=== PATIENT | male | born 1995 | race Asian ===

== ENCOUNTER 2016-10-19 17:33 | Observation (INO) | payer OTHER ==
[~2016-10-19] VITALS: Ht 172.7 cm; Wt 72.0 kg
[2016-10-19] MEDS ORDERED: MoRPHine SULFATE 10 MG/ML CARP/VIAL IV STA (18:07)
[2016-10-19] MEDS ORDERED: SODIUM CHLORIDE 0.9% 1000ML 1,000 ML IV STA (18:07)
[2016-10-19] MEDS ORDERED: ONDANSETRON INJ 2 MG/ML 2 ML VIAL IV STA (18:07)
[2016-10-19 18:17] LABS: BASO % 0.1 %; BASO ABS # 0.02 K/uL (0-0.2); COMPLETE YES; EOS % 0.2 %; HEMATOCRIT 50.5 % (42-52); IG% 0.4 %; LYMPH % 7.3 %; LYMPH ABS # 1.03 K/uL (1.2-3.4); MEAN CELL VOLUME 92.8 fL (80-100); MEAN CORPUSCULAR HEMOGLOBIN 31.3 pg (25-34); MEAN CORPUSCULAR HGB CONC 33.7 g/dl (32-36); MONO % 4.7 %; NEUT % 87.3 %; PLATELET COUNT 255 K/uL (130-400); RED BLOOD COUNT 5.44 M/uL (4.7-6.1); WHITE BLOOD COUNT 14.02 K/uL (4.8-10.8)
[2016-10-19 18:39] LABS: BUN/CREATININE RATIO 15.6 (10-20); CALCIUM 9.2 mg/dl (8.5-10.1); CREATININE 1.3 mg/dl (0.60-1.40); POTASSIUM 3.9 mmol/L (3.5-5.1)
[2016-10-19] MEDS ORDERED: OPTIRAY 320 IV PRN (21:00)
[2016-10-19 21:08] LABS: URINE APPEARANCE CLEAR (CLEAR); URINE BILIRUBIN NEG (NEG); URINE COLOR YELLOW; URINE EPITHELIAL CELL AUTO 0-5 /lpf (0-5); URINE NITRITE NEG (NEG); URINE PH 8.5 (4.5-7.5); URINE SPECIFIC GRAVITY 1.014 (1.000-1.030); UROBILINOGEN NEG (NEG); ZZUR CULT IF INDIC CLEAN CATCH NO
--- NOTE | 2016-10-19 21:08 | DIAGNOSTIC IMAGING REPORT ---
ABDOMEN AND PELVIS CT WITH IV AND ORAL CONTRAST CT DOSE: 279.49 mGy.cm HISTORY: Right lower quadrant abdominal pain. TECHNIQUE: Multiaxial CT images of the abdomen and pelvis were performed following the use of intravenous and oral contrast. COMPARISON STUDY: None. FINDINGS: The lung bases are clear. The liver, spleen, gallbladder, pancreas, kidneys, and adrenal glands are within normal limits. No bowel obstruction. The pelvic organs are unremarkable. No suspicious lytic or blastic osseous lesions. Distended appendix measuring up to 11 mm. There is mild periappendiceal fat stranding and appendiceal wall thickening. There is a 3 mm appendicolith. Findings are consistent with acute appendicitis. No perforation or abscess. 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 IMPRESSION: Acute appendicitis. Electronically signed by: Jaylon Ovalle M.D. 10/19/2016 9:06 PM Dictated Date/Time: 10/19/2016 9:02 PM
[2016-10-19 21:09] LABS: MANUAL MICROSCOPIC REQUIRED? NO; REVIEW REQ? NO
[2016-10-19] MEDS ORDERED: CEFOXITIN SOD 2 GM VIAL IV STA (21:47)
--- NOTE | 2016-10-19 21:47 | History and Physical ---
History & Physical Date & Time of Service: Oct 19, 2016 at 21:41 Chief Complaint: R Flank Pain,Vomiting Primary Care Physician: No Doctor, Assigned History of Present Illness Source: patient The patient is a 20 year old male who presents to the Emergency Room with complaints of persistent right sided abdominal pain that began when he woke up this morning, several hours prior to arrival. The patient describes the pain as sharp and shooting from his right upper quadrant to his right lower quadrant. He did vomit today, but he states that it was forced. He denies any urinary irregularities. The patient notes that he has not been eating or drinking today. He denies headache, change in vision, fevers, chest pain, shortness of breath, diarrhea, and melena. I examed pt and reviewed all labs and CT scan, I agree with Dx acute appendicitis, Social History Smoking Status: Never Smoker Smokeless Tobacco Use: No Alcohol Use: none Drug Use: none Allergies Coded Allergies: No Known Allergies (Unverified , 10/19/16) Home Medications No Active Prescriptions or Reported Meds Review of Systems Constitutional: No chills, No fatigue, No fever, No problem reported, No sweats , No weakness, No weight loss Eyes: No diplopia, No discharge, No eye pain, No problem reported, No redness, No worsening of vision ENT: No dental problems, No hearing loss, No nasal symptoms, No problem reported, No sore throat, No tinnitus, No trouble swallowing, No unusual epistaxis Respiratory: No cough, No dyspnea at rest, No dyspnea on exertion, No hemoptysis, No problem reported, No shortness of breath, No sputum, No wheezing Cardiovascular: No PND, No chest pain, No claudication, No edema, No orthopnea , No palpitations, No problem reported Abdomen: + nausea, + pain, + vomiting Musculoskeletal: No calf pain, No joint pain, No muscle pain, No problem reported, No swelling Genitourinary - Male: No dysuria, No hematuria, No impotence, No lesions, No penile discharge, No problem reported, No urinary frequency, No urinary hesitancy, No urinary incontinence, No urinary retention, No urinary urgency Neurologic: No balance problems, No memory loss, No numbness/tingling, No paralysis, No problem reported, No vertigo, No weakness Psychiatric: No anhedonism, No anxiety, No depression symptoms, No insomnia, No problem reported, No substance abuse Endocrine: No excessive thirst, No excessive urination, No fatigue, No problem reported Hematologic / Lymphatic: No abnormal bleeding/bruising, No clotting problems, No night sweats, No problem reported, No swollen lymph nodes Physical Exam Vital Signs Date Time Temp Pulse Resp B/P Pulse Ox O2 Delivery O2 Flow Rate FiO2 10/19/16 21:11 37.0 80 16 135/71 98 Room Air 10/19/16 19:50 75 18 138/65 100 Room Air 10/19/16 17:37 36.3 72 20 118/56 100 General Appearance: WD/WN, + mild distress Head: normocephalic Eyes: normal inspection ENT: normal ENT inspection, hearing grossly normal Neck: supple, no adenopathy, no JVD Respiratory/Chest: chest non-tender, lungs clear, normal breath sounds Cardiovascular: regular rate, rhythm, no edema, no gallop, no JVD Abdomen/GI: soft, no organomegaly, + tenderness, + guarding Extremities/Musculoskelatal: normal inspection, no calf tenderness, normal capillary refill Neurologic/Psych: no motor/sensory deficits, normal mood/affect Skin: normal color, warm/dry, no rash Diagnostics Laboratory Results Results Past 24 Hours Test 10/19/16 18:00 10/19/16 20:30 Range/Units White Blood Count 14.02 4.8-10.8 K/uL Red Blood Count 5.44 4.7-6.1 M/uL Hemoglobin 17.0 14.0-18.0 g/dL Hematocrit 50.5 42-52 % Mean Corpuscular Volume 92.8 80-100 fL Mean Corpuscular Hemoglobin 31.3 25-34 pg Mean Corpuscular Hemoglobin Concent 33.7 32-36 g/dl Platelet Count 255 130-400 K/uL Mean Platelet Volume 10.0 7.4-10.4 fL Neutrophils (%) (Auto) 87.3 % Lymphocytes (%) (Auto) 7.3 % Monocytes (%) (Auto) 4.7 % Eosinophils (%) (Auto) 0.2 % Basophils (%) (Auto) 0.1 % Neutrophils # (Auto) 12.23 1.4-6.5 K/uL Lymphocytes # (Auto) 1.03 1.2-3.4 K/uL Monocytes # (Auto) 0.66 0.11-0.59 K/uL Eosinophils # (Auto) 0.03 0-0.5 K/uL Basophils # (Auto) 0.02 0-0.2 K/uL RDW Standard Deviation 41.4 36.4-46.3 fL RDW Coefficient of Variation 12.3 11.5-14.5 % Immature Granulocyte % (Auto) 0.4 % Immature Granulocyte # (Auto) 0.05 0.00-0.02 K/uL Sodium Level 140 136-145 mmol/L Potassium Level 3.9 3.5-5.1 mmol/L Chloride Level 101 98-107 mmol/L Carbon Dioxide Level 29 21-32 mmol/L Anion Gap 10.0 3-11 mmol/L Blood Urea Nitrogen 20 7-18 mg/dl Creatinine 1.30 0.60-1.40 mg/dl Est Creatinine Clear Calc Drug Dose 87.7 ml/min Estimated GFR () 91.0 Estimated GFR (Non- 78.5 BUN/Creatinine Ratio 15.6 10-20 Random Glucose 109 70-99 mg/dl Calcium Level 9.2 8.5-10.1 mg/dl Total Bilirubin 0.9 0.2-1 mg/dl Direct Bilirubin 0.2 0-0.2 mg/dl Aspartate Amino Transf (AST/SGOT) 13 15-37 U/L Alanine Aminotransferase (ALT/SGPT) 26 12-78 U/L Alkaline Phosphatase 91 45-117 U/L Total Protein 8.2 6.4-8.2 gm/dl Albumin 4.7 3.4-5.0 gm/dl Lipase 81 73-393 U/L Urine Color YELLOW Urine Appearance CLEAR CLEAR Urine pH 8.5 4.5-7.5 Urine Specific [place] 1.014 1.000-1.030 Urine Protein NEG NEG Urine Glucose (UA) NEG NEG Urine Ketones 1+ NEG Urine Occult Blood NEG NEG Urine Nitrite NEG NEG Urine Bilirubin NEG NEG Urine Urobilinogen NEG NEG Urine Leukocyte Esterase NEG NEG Urine WBC (Auto) 0 0-5 /hpf Urine RBC (Auto) 0-4 0-4 /hpf Urine Hyaline Casts (Auto) 1-5 0-5 /lpf Urine Epithelial Cells (Auto) 0-5 0-5 /lpf Urine Bacteria (Auto) NEG NEG Diagnostic Radiology ABDOMEN AND PELVIS CT WITH IV AND ORAL CONTRAST CT DOSE: 279.49 mGy.cm HISTORY: Right lower quadrant abdominal pain. TECHNIQUE: Multiaxial CT images of the abdomen and pelvis were performed following the use of intravenous and oral contrast. COMPARISON STUDY: None. FINDINGS: The lung bases are clear. The liver, spleen, gallbladder, pancreas, kidneys, and adrenal glands are within normal limits. No bowel obstruction. The pelvic organs are unremarkable. No suspicious lytic or blastic osseous lesions. Distended appendix measuring up to 11 mm. There is mild periappendiceal fat stranding and appendiceal wall thickening. There is a 3 mm appendicolith. Findings are consistent with acute appendicitis. No perforation or abscess. 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 IMPRESSION: Acute appendicitis. Impression Assessment and Plan IMP: acute appendicitis Plan: I recommend to do laparoscopic appendectomy, possible open , D/w benefits , risks and alternatives of the procedure, the risks- infection, bleeding, abscess, injury bowel, pt understood, he agrees with the plan, I answered all questions, pre-op antibiotic, ASA Classification: ASA Class I Level of Care Med/Surg VTE Prophylaxis VTE Risk Assessment Done? Y/N: Yes Risk Level: Very Low Given or contraindicated: SCD's
[2016-10-19] MEDS ORDERED: MoRPHine SULFATE 4 MG/ML 1 ML CARP\\VIAL IV STA (21:48)
[2016-10-19] MEDS ORDERED: BUPIVACAINE 0.5 % 5 MG/1 ML MPF 30ML VIAL ONE (21:51)
[2016-10-19] MEDS ORDERED: LIDOCAINE HCL 1% 20 ML VIAL ONE (21:51)
[2016-10-19] MEDS ORDERED: BACITRACIN OINT 15 GM TUBE ONE (21:52)
[2016-10-19] MEDS ORDERED: ACETAMINOPHEN 325 MG TAB PO PRN ×2 (22:00→23:45)
[2016-10-19] MEDS ORDERED: ONDANSETRON INJ 2 MG/ML 2 ML VIAL IV PRN ×3 (22:00→23:45)
[2016-10-19] MEDS ORDERED: HYDROmorphone INJ 1 MG/ML SYR IV PRN ×2 (22:00→22:45)
[2016-10-19] MEDS ORDERED: IV FLUIDS COMPLETED PRN (22:00)
[2016-10-19] MEDS ORDERED: MIDAZOLAM HCL 1 MG/ML 2ML VIAL ONE (22:29)
[2016-10-19] MEDS ORDERED: FENTANYL CITRATE INJ 50 MCG/1 ML 2 ML VIAL ONE (22:30)
[2016-10-19] MEDS ORDERED: ATROPINE SULFATE 0.1 MG/ML 5ML SYR IV PRN (22:45)
[2016-10-19] MEDS ORDERED: FENTANYL CITRATE INJ 50 MCG/1 ML 2 ML VIAL IV PRN (22:45)
[2016-10-19] MEDS ORDERED: MEPERIDINE HCL 25 MG/ML CARP IV PRN (22:45)
[2016-10-19] MEDS ORDERED: LABETALOL HCL IV 5 MG/ML 20ML IV PRN (22:45)
[2016-10-19] MEDS ORDERED: EpHEDrine SULFATE INJ 50 MG/ML AMP IV PRN (22:45)
[2016-10-19] MEDS ORDERED: PROPOFOL IV EMULSION 10 MG/ML 20 ML VIAL IV ONE (23:40)
--- NOTE | 2016-10-19 23:40 | [facility] Post Operative Brief Note ---
Immediate Operative Summary Operative Date Oct 19, 2016. Pre-Operative Diagnosis Acute appendicitis Post-Operative Diagnosis Same Procedure(s) Performed Laparoscopic Appendectomy Surgeon Dr Galindo Ship Officer Surgeon(s) director surgical Estimated Blood Loss 5ML Findings acute appendicitis Fluids (cc crystalloids) 800ml Specimens A. Appendix Drains none Complication(s) None Disposition Recovery Room / PACU
[2016-10-19] MEDS ORDERED: NEOSTIGMINE METHYLSULFATE 5 MG/5 ML SYR ONE (23:41)
[2016-10-19] MEDS ORDERED: GLYCOPYRROLATE INJ 0.2 MG/ML VIAL ONE (23:41)
[2016-10-19] MEDS ORDERED: LIDOCAINE HCL 2% 2 ML VIAL (20MG/ML) ONE (23:41)
[2016-10-19] MEDS ORDERED: ONDANSETRON INJ 2 MG/ML 2 ML VIAL ONE (23:41)
[2016-10-19] MEDS ORDERED: ROCURONIUM BROMID 50MG/5ML SYR ONE (23:41)
[2016-10-19] MEDS ORDERED: HYDROmorphone INJ 2 MG/ML SYR/VIAL IV PRN (23:45)
[2016-10-19] MEDS ORDERED: OXYCODONE/ACETAMINOPHEN 5-325 TAB PO PRN (23:45)
[2016-10-20] VITALS (8 sets, daily range): BP systolic 110–150; BP diastolic 62–85; PULSE 67–91; TEMP 36.5–36.8; O2SAT 95–98; Ht 172.7 cm; Wt 72.0 kg
--- NOTE | 2016-10-20 00:18 | EMERGENCY ROOM VISIT NOTE ---
History Report prepared by Stefanie: Jaden Vasquez Under the Supervision of: Dr. Dedrick Garcia D.O. First contact with patient: 17:50 Chief Complaint: ABDOMINAL PAIN Stated Complaint: R FLANK PAIN,VOMITING Nursing Triage Summary: eigastric pain to right side started today History of Present Illness The patient is a 20 year old male who presents to the Emergency Room with complaints of persistent right sided abdominal pain that began when he woke up this morning, several hours prior to arrival. The patient describes the pain as sharp and shooting from his right upper quadrant to his right lower quadrant. He did vomit today, but he states that it was forced. He denies any urinary irregularities. The patient notes that he has not been eating or drinking today. He denies headache, change in vision, fevers, chest pain, shortness of breath, diarrhea, and melena. Review of Systems See HPI for pertinent positives & negatives. A total of 10 systems reviewed and were otherwise negative. Past Medical & Surgical Medical Problems: (1) Acute appendicitis Family History No recorded family histories. Social History Smoking Status: Never Smoker Marital Status: single Housing Status: lives with roommate Occupation Status: [employer] student Current/Historical Medications No Active Prescriptions or Reported Meds Allergies Coded Allergies: No Known Allergies (Unverified , 10/19/16) Physical Exam Vital Signs Date Time Temp Pulse Resp B/P Pulse Ox O2 Delivery O2 Flow Rate FiO2 10/20/16 00:05 63 16 158/91 100 Mask 3 10/19/16 23:54 36.5 81 12 155/75 100 Mask 3 10/19/16 22:14 86 18 135/70 100 Room Air 10/19/16 21:11 37.0 80 16 135/71 98 Room Air 10/19/16 19:50 75 18 138/65 100 Room Air 10/19/16 17:37 36.3 72 20 118/56 100 Physical Exam GENERAL: alert, sitting up in bed, holding lower abdomen. Patient is in moderate distress. EYE EXAM: normal conjunctiva, PERRL and EOM's grossly intact OROPHARYNX: no exudate, no erythema, lips, buccal mucosa, and tongue normal and mucous membranes are moist NECK: supple, no nuchal rigidity, no adenopathy, non-tender LUNGS: Clear to auscultation. Normal chest wall mechanics HEART: no murmurs, S1 normal and S2 normal ABDOMEN: abdomen soft, with tenderness in the right lower quadrant. normo- active bowel sounds, no masses, no rebound or guarding. BACK: Back is symmetrical on inspection and there is no deformity, no midline tenderness, no CVA tenderness. SKIN: no rashes and no bruising UPPER EXTREMITIES: upper extremities are grossly normal. LOWER EXTREMITIES: No pitting edema. NEURO EXAM: Normal sensorium, cranial nerves II-XII grossly intact, normal speech, no gross weakness of arms, no gross weakness of legs. Medical Decision & Procedures ER Provider Diagnostic Interpretation: Radiology results as stated below per my review and the radiologist's interpretation: ABDOMEN AND PELVIS CT WITH IV AND ORAL CONTRAST CT DOSE: 279.49 mGy.cm HISTORY: Right lower quadrant abdominal pain. TECHNIQUE: Multiaxial CT images of the abdomen and pelvis were performed following the use of intravenous and oral contrast. COMPARISON STUDY: None. FINDINGS: The lung bases are clear. The liver, spleen, gallbladder, pancreas, kidneys, and adrenal glands are within normal limits. No bowel obstruction. The pelvic organs are unremarkable. No suspicious lytic or blastic osseous lesions. Distended appendix measuring up to 11 mm. There is mild periappendiceal fat stranding and appendiceal wall thickening. There is a 3 mm appendicolith. Findings are consistent with acute appendicitis. No perforation or abscess. 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 IMPRESSION: Acute appendicitis. Electronically signed by: Jaylon Ovalle M.D. 10/19/2016 9:06 PM Dictated Date/Time: 10/19/2016 9:02 PM Laboratory Results 10/19/16 18:00 Red Blood Count 5.44, Mean Corpuscular Volume 92.8, Mean Corpuscular Hemoglobin 31.3, Mean Corpuscular Hemoglobin Concent 33.7, Mean Platelet Volume 10.0, Neutrophils (%) (Auto) 87.3, Lymphocytes (%) (Auto) 7.3, Monocytes (%) (Auto) 4.7, Eosinophils (%) (Auto) 0.2, Basophils (%) (Auto) 0.1, Neutrophils # (Auto) 12.23, Lymphocytes # (Auto) 1.03, Monocytes # (Auto) 0.66, Eosinophils # (Auto) 0.03, Basophils # (Auto) 0.02 10/19/16 18:00 Test 10/19/16 18:00 10/19/16 20:30 White Blood Count 14.02 K/uL (4.8-10.8) Red Blood Count 5.44 M/uL (4.7-6.1) Hemoglobin 17.0 g/dL (14.0-18.0) Hematocrit 50.5 % (42-52) Mean Corpuscular Volume 92.8 fL (80-100) Mean Corpuscular Hemoglobin 31.3 pg (25-34) Mean Corpuscular Hemoglobin Concent 33.7 g/dl (32-36) Platelet Count 255 K/uL (130-400) Mean Platelet Volume 10.0 fL (7.4-10.4) Neutrophils (%) (Auto) 87.3 % Lymphocytes (%) (Auto) 7.3 % Monocytes (%) (Auto) 4.7 % Eosinophils (%) (Auto) 0.2 % Basophils (%) (Auto) 0.1 % Neutrophils # (Auto) 12.23 K/uL (1.4-6.5) Lymphocytes # (Auto) 1.03 K/uL (1.2-3.4) Monocytes # (Auto) 0.66 K/uL (0.11-0.59) Eosinophils # (Auto) 0.03 K/uL (0-0.5) Basophils # (Auto) 0.02 K/uL (0-0.2) RDW Standard Deviation 41.4 fL (36.4-46.3) RDW Coefficient of Variation 12.3 % (11.5-14.5) Immature Granulocyte % (Auto) 0.4 % Immature Granulocyte # (Auto) 0.05 K/uL (0.00-0.02) Anion Gap 10.0 mmol/L (3-11) Est Creatinine Clear Calc Drug Dose 87.7 ml/min Estimated GFR () 91.0 Estimated GFR (Non- 78.5 BUN/Creatinine Ratio 15.6 (10-20) Calcium Level 9.2 mg/dl (8.5-10.1) Total Bilirubin 0.9 mg/dl (0.2-1) Direct Bilirubin 0.2 mg/dl (0-0.2) Aspartate Amino Transf (AST/SGOT) 13 U/L (15-37) Alanine Aminotransferase (ALT/SGPT) 26 U/L (12-78) Alkaline Phosphatase 91 U/L (45-117) Total Protein 8.2 gm/dl (6.4-8.2) Albumin 4.7 gm/dl (3.4-5.0) Lipase 81 U/L (73-393) Urine Color YELLOW Urine Appearance CLEAR (CLEAR) Urine pH 8.5 (4.5-7.5) Urine Specific [place] 1.014 (1.000-1.030) Urine Protein NEG (NEG) Urine Glucose (UA) NEG (NEG) Urine Ketones 1+ (NEG) Urine Occult Blood NEG (NEG) Urine Nitrite NEG (NEG) Urine Bilirubin NEG (NEG) Urine Urobilinogen NEG (NEG) Urine Leukocyte Esterase NEG (NEG) Urine WBC (Auto) 0 /hpf (0-5) Urine RBC (Auto) 0-4 /hpf (0-4) Urine Hyaline Casts (Auto) 1-5 /lpf (0-5) Urine Epithelial Cells (Auto) 0-5 /lpf (0-5) Urine Bacteria (Auto) NEG (NEG) Laboratory results per my review. Medications Administered Medications (Trade) Dose Ordered Sig/Marcial Route Start Time Stop Time Status Last Admin Dose Admin Sodium Chloride (Nss 1000ml) 1,000 ml @ 999 mls/hr Q1H1M STAT IV 10/19/16 18:07 10/19/16 19:07 DC 10/19/16 18:28 999 MLS/HR Ondansetron HCl (Zofran Inj) 4 mg NOW STAT IV 10/19/16 18:07 10/19/16 18:09 DC 10/19/16 18:25 4 MG Morphine Sulfate (MoRPHine SULFATE INJ) 6 mg NOW STAT IV 10/19/16 18:07 10/19/16 18:09 DC 10/19/16 18:25 6 MG Lidocaine HCl (Xylocaine 1% Inj (Local)) 20 ml STK-MED ONCE .ROUTE 10/19/16 21:51 10/19/16 21:52 DC 10/19/16 23:15 6 ML Bupivacaine HCl (Marcaine 0.5% MPF Inj) 30 ml STK-MED ONCE .ROUTE 10/19/16 21:51 10/19/16 21:52 DC 10/19/16 23:15 6 ML Bacitracin (Bacitracin Oint) 45 appln STK-MED ONCE .ROUTE 10/19/16 21:52 10/19/16 21:53 DC 10/19/16 23:15 45 APPLN Cefoxitin Sodium (Mefoxin IV) 2,000 mg NOW STAT IV 10/19/16 21:47 10/19/16 21:49 DC 10/19/16 21:58 2,000 MG Morphine Sulfate (MoRPHine SULFATE INJ) 4 mg NOW STAT IV 10/19/16 21:48 10/19/16 21:49 DC 10/19/16 21:57 4 MG ED Course ED COURSE: Vital signs were reviewed and showed Normal Vitals The patients medical record was reviewed and showed no previous visits to the Emergency Department. The above diagnostic studies were performed and reviewed. ED treatments and interventions as stated above. 1800: The patient was evaluated in room C5. A complete history and physical examination was performed. 1806: Ordered Morphine Sulfate 6 mg IV, Zofran 4 mg IV, Sodium Chloride 1000 mL @ 999 mL/hr IV. 4: I reevaluated the patient at this time, he has not pain at all currently. 3: I discussed the case with Dr. Galindo - General Surgery at this time, he will accept the patient for further treatment. 2146: Ordered Cefoxitin Sodium 2000 mg IV, Potassium 1000 mL @ 100 mL/hr IV, Morphine Sulfate 4 mg IV. 0: Upon reevaluation, the patient is resting in bed.I discussed my findings with the patient and he understands and agrees with the treatment plan. Based on the patients age, coexisting illnesses, exam and lab findings the decision to treat as an inpatient was made. The patient remained stable while under my care. The patient will be evaluated for further management. Medical Decision Differential diagnoses includes but is not limited to gastritis, peptic ulcer disease, GERD, gallbladder disease, pancreatitis, small bowel obstruction, acute coronary syndrome, pericarditis, ischemic bowel, irritable bowel disease, irritable bowel syndrome, appendicitis, diverticulitis, malignancy, hernia, urinary tract infection, torsion, perforation, trauma, infectious. Patient is a 20-year-old male who presents the ER with right lower quadrant abdominal pain which started earlier today associated with nausea and vomiting. He has a mild leukocytosis. Vitals are unremarkable. Pain was controlled with both Dilaudid and morphine. CT of his abdomen pelvis shows acute appendicitis which is supported by his exam. General surgery was consulted and he was taken to the OR. Consults Time Called: 2114 Consulting Physician: Dr. Galindo - General Surgery Returned Call: [phone] I discussed the case with Dr. Mateo Acosta at this time, he will accept the patient for further treatment. Impression Primary Impression: Acute appendicitis Scribe Attestation The scribe's documentation has been prepared under my direction and personally reviewed by me in its entirety. I confirm that the note above accurately reflects all work, treatment, procedures, and medical decision making performed by me. Departure Information Dispostion Being Evaluated By Surgeon Prescriptions No Active Prescriptions or Reported Meds Referrals No Doctor, Assigned (PCP) Patient Instructions My [facility] Problem Qualifiers Primary Impression: Acute appendicitis Acute appendicitis type: with localized peritonitis Qualified Codes: K35.3 - Acute appendicitis with localized peritonitis
[2016-10-20] MEDS: OXYCODONE/ACETAMINOPHEN 5-325 TAB PO PRN ×2 (01:18→13:10)
[2016-10-20] MEDS: D5W AND 1/2NSS + 20MEQ KCL 1,000 ML IV SCH ×2 (01:33→10:55)
--- NOTE | 2016-10-20 02:03 | Anesthesiology Progress Note ---
Anesthesia Post Op Note Date & Time Oct 20, 2016 at 02:02 Vital Signs Pain Intensity: 6.0 Vital Signs Past 12 Hours Date Time Temp Pulse Resp B/P Pulse Ox O2 Delivery O2 Flow Rate FiO2 10/20/16 01:41 36.5 67 14 144/74 98 Room Air 10/20/16 01:10 97 Room Air 10/20/16 01:10 36.8 69 16 150/85 97 Room Air 10/20/16 00:55 74 17 140/69 94 Room Air 10/20/16 00:45 73 20 144/81 97 Room Air 10/20/16 00:35 63 14 146/86 94 Room Air 10/20/16 00:25 71 15 157/88 95 Room Air 10/20/16 00:15 77 20 157/89 95 Room Air 10/20/16 00:05 63 16 158/91 100 Mask 3 10/19/16 23:54 36.5 81 12 155/75 100 Mask 3 10/19/16 22:14 86 18 135/70 100 Room Air 10/19/16 21:11 37.0 80 16 135/71 98 Room Air 10/19/16 19:50 75 18 138/65 100 Room Air 10/19/16 17:37 36.3 72 20 118/56 100 Notes Mental Status: alert / awake / arousable, participated in evaluation Pt Amnestic to Procedure: Yes Nausea / Vomiting: adequately controlled Pain: adequately controlled Airway Patency, RR, SpO2: stable & adequate BP & HR: stable & adequate Hydration State: stable & adequate Anesthetic Complications: no major complications apparent
--- NOTE | 2016-10-20 08:21 | Surgery Progress Note ---
Surgery Progress Note Date of Service Oct 20, 2016. Subjective Post OP Day: 1 + feeling well F/U S/P laparoscopic appendectomy, pt is doing better, less abdominal pain, no nausea, no vomiting, he tolerated diet, pt wants go home today. Objective Vital Signs: Date Time Temp Pulse Resp B/P Pulse Ox O2 Delivery O2 Flow Rate FiO2 10/20/16 07:41 36.6 82 16 110/65 98 Room Air 10/20/16 07:10 Room Air 10/20/16 04:15 36.6 78 14 120/66 95 Room Air 10/20/16 03:13 36.6 83 12 115/62 98 Room Air 10/20/16 02:13 36.7 91 14 126/62 95 Room Air 10/20/16 01:41 36.5 67 14 144/74 98 Room Air 10/20/16 01:10 97 Room Air 10/20/16 01:10 36.8 69 16 150/85 97 Room Air 10/20/16 00:55 74 17 140/69 94 Room Air 10/20/16 00:45 73 20 144/81 97 Room Air 10/20/16 00:35 63 14 146/86 94 Room Air 10/20/16 00:25 71 15 157/88 95 Room Air 10/20/16 00:15 77 20 157/89 95 Room Air 10/20/16 00:05 63 16 158/91 100 Mask 3 10/19/16 23:54 36.5 81 12 155/75 100 Mask 3 10/19/16 22:14 86 18 135/70 100 Room Air 10/19/16 21:11 37.0 80 16 135/71 98 Room Air 10/19/16 19:50 75 18 138/65 100 Room Air 10/19/16 17:37 36.3 72 20 118/56 100 General Appearance: WD/WN Head: normocephalic Neck: supple, no JVD Respiratory/Chest: chest non-tender, lungs clear Cardiovascular: regular rate, rhythm, no edema, no gallop, no JVD Abdomen: normal bowel sounds, non tender, non distended, soft Incision(s): clean, dry, intact Extremities: normal range of motion, non-tender, normal inspection Laboratory Results: Results Past 24 Hours Test 10/19/16 18:00 4/23/17 20:30 Range/Units White Blood Count 14.02 4.8-10.8 K/uL Red Blood Count 5.44 4.7-6.1 M/uL Hemoglobin 17.0 14.0-18.0 g/dL Hematocrit 50.5 42-52 % Mean Corpuscular Volume 92.8 80-100 fL Mean Corpuscular Hemoglobin 31.3 25-34 pg Mean Corpuscular Hemoglobin Concent 33.7 32-36 g/dl Platelet Count 255 130-400 K/uL Mean Platelet Volume 10.0 7.4-10.4 fL Neutrophils (%) (Auto) 87.3 % Lymphocytes (%) (Auto) 7.3 % Monocytes (%) (Auto) 4.7 % Eosinophils (%) (Auto) 0.2 % Basophils (%) (Auto) 0.1 % Neutrophils # (Auto) 12.23 1.4-6.5 K/uL Lymphocytes # (Auto) 1.03 1.2-3.4 K/uL Monocytes # (Auto) 0.66 0.11-0.59 K/uL Eosinophils # (Auto) 0.03 0-0.5 K/uL Basophils # (Auto) 0.02 0-0.2 K/uL RDW Standard Deviation 41.4 36.4-46.3 fL RDW Coefficient of Variation 12.3 11.5-14.5 % Immature Granulocyte % (Auto) 0.4 % Immature Granulocyte # (Auto) 0.05 0.00-0.02 K/uL Sodium Level 140 136-145 mmol/L Potassium Level 3.9 3.5-5.1 mmol/L Chloride Level 101 98-107 mmol/L Carbon Dioxide Level 29 21-32 mmol/L Anion Gap 10.0 3-11 mmol/L Blood Urea Nitrogen 20 7-18 mg/dl Creatinine 1.30 0.60-1.40 mg/dl Est Creatinine Clear Calc Drug Dose 87.7 ml/min Estimated GFR () 91.0 Estimated GFR (Non- 78.5 BUN/Creatinine Ratio 15.6 10-20 Random Glucose 109 70-99 mg/dl Calcium Level 9.2 8.5-10.1 mg/dl Total Bilirubin 0.9 0.2-1 mg/dl Direct Bilirubin 0.2 0-0.2 mg/dl Aspartate Amino Transf (AST/SGOT) 13 15-37 U/L Alanine Aminotransferase (ALT/SGPT) 26 12-78 U/L Alkaline Phosphatase 91 45-117 U/L Total Protein 8.2 6.4-8.2 gm/dl Albumin 4.7 3.4-5.0 gm/dl Lipase 81 73-393 U/L Urine Color YELLOW Urine Appearance CLEAR CLEAR Urine pH 8.5 4.5-7.5 Urine Specific [place] 1.014 1.000-1.030 Urine Protein NEG NEG Urine Glucose (UA) NEG NEG Urine Ketones 1+ NEG Urine Occult Blood NEG NEG Urine Nitrite NEG NEG Urine Bilirubin NEG NEG Urine Urobilinogen NEG NEG Urine Leukocyte Esterase NEG NEG Urine WBC (Auto) 0 0-5 /hpf Urine RBC (Auto) 0-4 0-4 /hpf Urine Hyaline Casts (Auto) 1-5 0-5 /lpf Urine Epithelial Cells (Auto) 0-5 0-5 /lpf Urine Bacteria (Auto) NEG NEG Assessment & Plan IMP: S/P lap appy D/C home today, I gave pt post-op care instruction, F/U 1 week, regular diet
--- NOTE | 2016-10-20 08:24 | Discharge Instructions ---
Discharge Instructions Date of Service Oct 20, 2016. Admission Reason for Admission: Acute Appendicitis Discharge Discharge Diagnosis / Problem: S/P laparoscopic appendectomy Discharge Goals Goal(s): Decrease discomfort, Improve function Activity Recommendations Activity Limitations: per Instructions/Follow-up section Lifting Limitations: no more than 25 pounds Exercise/Sports Limitations: gradually increase as tolerated May Resume Sexual Activity: when tolerated Shower/Bathe: may shower/bathe in 3 days Driving or Machine Use: resume 3 days after discharge . Instructions / Follow-Up Instructions / Follow-Up keep all dressing on for 4 days, he can take a shower on 10/24/2016, no driving while taking pain medicine, follow up 1 week, . Current Hospital Diet Patient's current hospital diet: Regular Diet Discharge Diet Recommended Diet: Regular Diet Procedures Procedures Performed: Laparoscopic Appendectomy Pending Studies Studies pending at discharge: no Medical Emergencies . Who to Call and When: Medical Emergencies: If at any time you feel your situation is an emergency, please call 911 immediately. . Non-Emergent Contact Non-Emergency issues call your: Surgeon Call Non-Emergent contact if: you have a fever, temperature is above 100.5, your pain is not controlled, your pain is worsening, wound has increased drainage, wound has increased redness . "Provider Documentation" section prepared by Valery Galindo. . VTE Core Measure Inpt VTE Proph given/why not?: SCD's [place] Drug Monitoring Program Search Results: no issues identified
[2016-10-20] MEDS ORDERED: OXYC-57 PO (08:26)
--- NOTE | 2016-10-20 10:22 | OPERATIVE REPORT ---
DATE OF OPERATION: 10/19/2016 PREOPERATIVE DIAGNOSIS: Acute appendicitis. POSTOPERATIVE DIAGNOSIS: Same. OPERATION: Laparoscopic appendectomy. SURGEON: Dr. Valery Galindo. ANESTHESIA: General. ESTIMATED BLOOD LOSS: About 5 mL FINDINGS: Acute appendicitis. COMPLICATIONS: None. INDICATIONS FOR THE PROCEDURE: This is [id number] gentleman who presented to the ED with a 1-day history of right lower quadrant pain. The patient had a CT scan showing acute appendicitis. We decided to take the patient to the OR. We will do laparoscopic appendectomy, possible open. I did talk to the patient about the benefit and risk, alternate procedure. I indicated the risks may include, but not limited, such as bleeding, infection, abscess, injury to bowel. The patient understands. He signed informed consent and I answered all questions. DETAILS OF PROCEDURE: We brought the patient to the OR, put the patient in the supine position. The patient received SCDs on bilateral legs to prevent DVT. Also, the patient received a Bojorquez catheter insertion after anesthesia was given. Also, the patient received 2 gram cefoxitin IV for prophylactic antibiotic. The patient's abdomen was prepped and draped in routine sterile fashion. After a timeout, I injected a local anesthesia by using 1% lidocaine mixed with 0.25% Marcaine above umbilical area. I made a small incision just above umbilicus, opened fascia and opened peritoneum under direct vision. I put a Justyn trocar in, connected to CO2 to create pneumoperitoneum. Flow rate was 6 liter per minute. Pressure not more than 14 mmHg. Once we got a nice pneumoperitoneum, we put a 10 mm camera in to look around the abdomen, showing normal findings on the liver, stomach, small bowel, large bowel; however, I found the patient has acute appendicitis. Appendix was swollen, had inflammation. Then, we put another two 5 mm trocars on the left side lower quadrant area. I put a grasper in to mobilize the appendix. I used a Harmonic to take down appendicocele, rechecked, no active bleeding. Then I used a 40 mm Endo-BEN stapler to transect around the base of the appendix, rechecked, no active bleeding and no leak. Then, I used the catch bag to pull out the appendix through the catch bag and then we inserted Justyn trocar in and created pneumoperitoneum again to look around the abdomen, showing no active bleeding, no leak from the staple line. Then we removed all trocars under direct vision. No active bleeding from trocar sites. Then, the pneumoperitoneum was released. Then I closed the umbilical incision and fascial layer by using #1 Vicryl [id number] x2, closed the subcutaneous layer by using 2-0 Vicryl, closed skin by using 0 Monocryl and closed another 5 mm trocar site by using 4-0 Monocryl for skin only and the patient tolerated the procedure well. After the procedure, transferred to recovery room in stable condition. All instrument, needle and sponge counts correct x2 at the end of case. The specimen sent to pathology. I attest to the content of the Intraoperative Record and any orders documented therein. Any exceptions are noted below. YAJAIRAD
--- NOTE | 2016-10-20 10:33 | DISCHARGE SUMMARY ---
ADMITTING DIAGNOSIS: Acute appendicitis. DISCHARGE DIAGNOSIS: Same. OPERATION: Laparoscopic appendectomy. SURGEON: Dr. Valery Galindo. DETAILS OF DISCHARGE SUMMARY: This is a 20-year-old gentleman, who presented to the ED with a 1-day history of right lower quadrant pain. The patient had a CT scan, confirmed patient had acute appendicitis. We took the patient to the OR. We did a laparoscopic appendectomy. We confirmed the patient had acute appendicitis, in the OR. The patient tolerated the procedure well. After the procedure, the patient transferred to recovery room and later on transferred to the surgical floor. The patient is doing fine. Good control of incision pain. The patient has no nausea, no vomiting and he tolerated a clear diet. PHYSICAL EXAMINATION: VITAL SIGNS: Temperature is 36.6, heart rate is 82, respiratory rate 16, blood pressure is 110/65, O2 saturation is 98% on room air. GENERAL: The patient is alert, awake, oriented x3. HEENT: With normal limitation. NEUROLOGICALLY: He is intact. NECK: No JVD. CHEST: Bilateral lung sounds clear. HEART: Normal S1, S2. No murmur. ABDOMEN: Soft, slight tenderness on the incision site. Nondistended. All dressings intact. Bowel sounds positive. EXTREMITIES: No edema. PLAN: The patient wants to go home today. I gave patient the postop care instructions. The patient understands. I will follow up the patient in 1 week. BRENNA
== END 2016-10-20 13:20 | disposition home or self-care (01) ==
LOC: ENRESERVTM → ENRESERVDT → C.EDB 17:36 → C.3E 21:50
PROVIDERS: ADMIT Surgery; ATTEND Surgery
DX: K35.80 Unspecified acute appendicitis (principal)